=== PATIENT | male | born 1940 | race Caucasian/White ===

== ENCOUNTER 2020-09-15 10:21 | Outpatient (REF) | payer MEDICARE, SELFPAY | END 2020-09-15 10:22 | disposition home or self-care (01) | LOC: HO.LAB 10:21 | PROVIDERS: PCP Internal Medicine; Visit Provider Internal Medicine | DX: Z20.828 Contact with and (suspected) exposure to other viral communicable diseases (principal) | CPT/HCPCS: C9803; U0003 ==

== ENCOUNTER 2025-05-10 09:43 | Outpatient (AMB) | payer MEDICARE, SELFPAY ==
--- NOTE | 2025-05-10 09:42 | A.OFFPC_ITS ---
Vital Signs 05/10/25 09:47 05/10/25 10:42 Height 5 ft 8.5 in Weight 167 lb BMI 25.0 BP 144/67 H 138/60 Blood Pressure Location Rt brachial Position Sitting Respiration 14 Pulse 70 Pulse Source Pulse Oximeter Temp 97.6 F Temp Source Temporal Artery Scan Pulse Oximetry (%) 97 Oxygen Delivery Method Room Air Intake Visit Reasons: Est Care ~ Transfer of Care Dr. Villafana Retail Marketing Specialist Required: No Accompanied by: Self / Same As Patient Allergies No Known Allergies Allergy (Unverified 05/10/25 09:55) Medication List - Last Reconciled 05/10/25 by Dolly Butler PA-C clindamycin phosphate 1% topical DAILY finasteride 5 mg PO DAILY lactulose 30 mL PO BID PRN metronidazole 0.75% topical DAILY sennosides (Black-Draught Lax-Senna) 17.2 mg PO BEDTIME simvastatin 20 mg PO QPM terazosin 5 mg PO DAILY Tobacco use date assessed: 05/10/25 Fall risk assessment: No Falls in past year Last assessed Fall Risk: 05/10/25 Dental Screening Dental Screen Date: 05/10/25 Did you have a dental visit in the last 12 months?: Yes Did you have a dental problem in the last 6 months where you did not have access to dental care?: No Was dental information given to patient?: Patient has dentist HPI Est Care ~ Transfer of Care Dr. Villafana HPI Details The patient is an 84-year-old male presenting for a new patient appointment and routine health maintenance. The patient has a history of benign prostatic hyperplasia, for which he is taking finasteride and terazosin. He reports no acute urinary symptoms and his prostate is noted to be enlarged but not alarming during physical exams. The patient experiences constipation, managed with lactulose, and is under the care of a construction technician. He has a follow-up appointment scheduled next month to monitor his bowel movements and adjust treatment as necessary. The patient has a history of rosacea, for which he uses topical clindamycin. He underwent knee replacement surgery in July, performed by Dr. Sandhu at [facility] [place]. Post-surgery, he reports some swelling but no significant complications. 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 Bhatt at [facility] [place]. He was recently diagnosed with vertigo but is not currently taking medication for it. He was offered meclizine to use as needed for symptoms. Prevent[facility] care [facility], with no current need for dentures. Social History - Family status: for 62 years, garret bolden with - Functional status: No recent falls, do es not require a walker - Preventative care: Regular eye exams a nd dental visits through the [facility] Medical History Overweight with body mass index (BMI) of 25 to 25.9 in adult Vertigo Squamous cell carcinoma of forehead Rosacea Constipation BPH (benign prostatic hyperplasia) Establishing care with new doctor, encounter for Surgical History History of total right hip arthroplasty Family History Father Aneurysm Mother Heart attack Social History Housing: House Alcohol intake: current Alcohol intake frequency: a few times a month Alcohol type: beer Patient Tobacco Use Status: Former Tobacco user service: Yes Current occupational status: retired Cognitive needs: No Hearing needs: Yes (b/l hearing aids) Vision needs: Yes (rx glasses) Questionnaire PHQ-9 Over the last 2 weeks, how often have you been bothered by any of the following problems? 1. Little interest or pleasure in doing things: not at all 2. Feeling down, depressed, or hopeless: not at all 3. Trouble falling or staying asleep, or sleeping too much: not at all 4. Feeling tired or having little energy: not at all 5. Poor appetite or overeating: not at all 6. Feeling bad about yourself - or that you are a failure or have let yourself or your family down: not at all 7. Trouble concentrating on things, such as reading the newspaper or watching television: not at all 8. Moving or speaking so slowly that other people could have noticed. Or the opposite - being so fidgety or restless that you have been moving around a lot more than usual: not at all 9. Thoughts that you would be better off or of hurting yourself in some way: not at all Total score: 0 Depression Screening Interpretation: Negative Depression Screening Done: Yes 46943 - PHQ-9 Billing: Yes Source: Developed by Drs. Rosendo Rivas, Sandra Shah, Homar Hutchison and colleagues, with an educational silverio from [employer]. Thrive Questionnaire Date Thrive assessed: 05/10/25 I am a: Patient What is your living situation today?: I have a steady place to live Within the past 12 months, did the food you bought not last and you didn't have the money to get more?: Never true Within the past 12 months, did you worry whether your food would run out before you got money to buy more?: Never true Do you have trouble paying for medicines?: No Do you have trouble getting transportation to medical appointments?: No Do you have trouble paying your heating and electricity bill?: No Do you have trouble taking care of your child, family member or friend?: No Do you have trouble with day-to-day activities such as bathing, preparing meals, shopping, managing finances, etc.?: No Are you currently unemployed and looking for a job?: No Are you interested in more education?: No Please select the resources that you would like help with: None THRIVE Score: 0 AUDIT C Alcohol Use Questionnaire (AUDIT-C) 1. How often do you have a drink containing alcohol?: 2-4 times a month 2. How many drinks containing alcohol do you have on a typical day when you are drinking?: 1 or 2 3. How often do you have six or more drinks on one occasion?: Never Total Score: 2 Score Reviewed/Action Taken: No ROB-7 AMB Questionnaire ROB-7 Date ROB - 7 assessed: 05/10/25 Feeling nervous, anxious, or on edge: 0 = Not at all Not being able to stop or control worryin = Not at all Worrying too much about different things: 0 = Not at all Trouble relaxin = Not at all Being so restless that it is hard to sit still: 0 = Not at all Becoming easily annoyed or irritable: 0 = Not at all Feeling afraid as if something awful might happen: 0 = Not at all Total ROB-7 score (0-4 normal; 5-9 mild; 10-14 moderate; 15-21 severe): 0 Source: Developed by Drs. Rosendo Rivas, Sandra Shah, Homar Hutchison and colleagues, with an educational silverio from [employer]. ROB-7 Assessment Billing ROB-7 Assessment Tool: ROB-7 Assessment 09177 Review of Systems Const Details: - General: Denies acute complaints - Cardiovascular: Denies chest pain - Gastrointestinal: Reports constipation, denies abdominal pain or bloody stools - Musculoskeletal: Reports knee swelling post-replacement surgery - Dermatological: Reports rosacea, scheduled for squamous cell carcinoma surgery - Neurological: Reports vertigo, denies taking medication All systems reviewed & are unremarkable except as noted in HPI and below Physical exam (Primary Care) Vital Signs: Last Vital Signs Temp 97.6 F 05/10/25 09:47 Pulse 70 05/10/25 09:47 Resp 14 05/10/25 09:47 BP 144/67 H 05/10/25 09:47 Pulse Ox 97 05/10/25 09:47 Oxygen Delivery Method Room Air 05/10/25 09:47 Care Plan Goal for BP management: <140/90 at Goal BMI result Body Mass Index 25.0 BMI Assessment/Plan discussion: High BMI High, discussed plan: lifestyle, weight reduction, dietary, physical activity and alcohol moderation Tobacco/Smoking Status: Tobacco use Status Tobacco use date assessed 05/10/25 05/10/25 09:44 Patient Tobacco Use Status Former Tobacco user 05/10/25 09:54 PHQ-9: PHQ-9 Score PHQ-9: Total score 0 05/10/25 09:56 Depression Screening Interpretation: Negative Thrive Assessment: Date of Thrive Assessment Date Thrive assessed 05/10/25 05/10/25 09:44 Const Other: Appearance: Alert. Oriented X3. No acute distress. Head: Normal external exam. Normocephalic. Atraumatic. Eyes: Pupils are equal, round, and reactive to light. Extraocular movements intact. Conjunctiva and sclera normal. Eyelids normal. Throat: Pharynx normal. Uvula midline. Moist mucous membranes. Neck: Normal inspection. Neck supple. Full range of motion. Cardiovascular: Normal heart rate and rhythm. Heart sound normal. No murmurs noted. Pulses normal throughout. Respiratory: No respiratory distress. Painless inspiration. Breath sounds normal. No wheezes/rales/rhonchi noted. Chest nontender. No accessory muscle usage noted or decreased air movement noted. Back: Full range of motion noted. Skin: Skin warm and dry. Normal skin color. Normal skin turgor. No rashes/lesions/lacerations noted. Extremities: Swelling noted in the knee due to recent knee replacement surgery. No lower extremity edema otherwise. No calf tenderness noted bilaterally. Extremities exhibit normal range of motion. Extremities nontender. Neuro: Oriented X 3. Moving all extremities with normal steady gait. Coding Level of Care Code New Pt Level 4 (43661) Complex EM visit Add On G2211 Diagnoses Establishing care with new doctor, encounter for Z76.89 BPH (benign prostatic hyperplasia) N40.0 Constipation K59.00 Rosacea L71.9 Squamous cell carcinoma of forehead C44.329 Vertigo R42 Overweight with body mass index (BMI) of 25 to 25.9 in adult E66.3; Z68.25 Additional Codes PHQ-9 - 55215 - PHQ-9 Billing: Yes ([id number]) ROB-7 Assessment Billing - ROB-7 Assessment Tool: ROB-7 Assessment 62059 ([id number]) Assessment & Plan Assessment & Plan (1) Establishing care with new doctor, encounter for: Code(s): Z76.89 - Persons encountering health services in other specified circumstances Category: Medical (2) BPH (benign prostatic hyperplasia): Code(s): N40.0 - Benign prostatic hyperplasia without lower urinary tract symptoms Category: Medical Plan: The patient is currently managed with finasteride and terazosin for benign prostatic hyperplasia. The prostate is noted to be enlarged but not causing sig nificant symptoms or concern during physical exams. (3) Constipation: Code(s): K59.00 - Constipation, unspecified Category: Medical Plan: The patient is experiencing constipation and is managed with lactulose. He is under the care of a construction technician and has a follow-up appointment scheduled to monitor and adjust treatment as necessary. (4) Rosacea: Code(s): L71.9 - Rosacea, unspecified Category: Medical Plan: The patient uses topical clindamycin for rosacea management. 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 Bhatt at [facility]. (6) Vertigo: Code(s): R42 - Dizziness and giddiness Category: Medical Plan: The patient was recently diagnosed with vertigo and was offered meclizine to use as needed for symptoms. (7) Overweight with body mass index (BMI) of 25 to 25.9 in adult: Code(s): E66.3 - Overweight; Z68.25 - Body mass index [BMI] 25.0-25.9, adult Category: Medical Plan: Patient to improve diet and exercise regimen. Condition is chronic and stable continue to monitor. Plan Plan Patient was informed and verbally consented to the use of an ambient scribe for clinic note documentation during this visit. 1. Benign Prostatic Hyperplasia The patient is currently managed with finasteride and terazosin for benign prostatic hyperplasia. The prostate is noted to be enlarged but not causing significant symptoms or concern during physical exams. 2. Constipation The patient is experiencing constipation and is managed with lactulose. He is under the care of a construction technician and has a follow-up appointment scheduled to monitor and adjust treatment as necessary. 3. Rosacea The patient uses topical clindamycin for rosacea management. 4. Knee Replacement Surgery The patient underwent knee replacement surgery in July, performed by Dr. Sandhu at [facility]. Post-surgery, he reports some swelling but no significant complications. 5. 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 Bhatt at [facility]. 6. Vertigo The patient was recently diagnosed with vertigo and was offered meclizine to use as needed for symptoms. During the visit, we discussed the management of benign prostatic hyperplasia with finasteride and terazosin, and the patient was informed that his prostate enlargement is not currently concerning. We reviewed the patient's constipation management with lactulose and the ongoing care with a construction technician, emphasizing the importance of follow-up appointments. The patient was advised on the use of topical clindamycin for rosacea and the upcoming surgery for squamous cell carcinoma, ensuring he understood the procedure and follow-up ca re. We discussed the recent diagnosis of vertigo and the option of using meclizine as needed, explaining its potential side effects. Medications: New meclizine 25 mg PO DAILY PRN 30 tabs 3RF motion sickness Patient Instructions: - Continue current medications as prescribed. - Follow up with construction technician as scheduled. - Attend scheduled surgery for squamous cell carcinoma. - Use meclizine as needed for vertigo symptoms, being aware of potential drowsiness. - [facility].
[2025-05-10 09:47] VITALS: BP 144/67; PULSE 70; RESP 14; TEMP 36.4; O2SAT 97; BMI 25.0
[2025-05-10 10:42] VITALS: BP 138/60
== END 2025-05-10 09:46 | disposition home or self-care (01) ==
LOC: HO.HMCSH 09:43
PROVIDERS: PCP Internal Medicine; Visit Provider Physician Assistant Medical
DX: Z76.89 Persons encountering health services in other specified circumstances (principal); N40.0 Benign prostatic hyperplasia without lower urinary tract symptoms; K59.00 Constipation, unspecified; L71.9 Rosacea, unspecified; C44.329 Squamous cell carcinoma of skin of other parts of face; R42 Dizziness and giddiness; E66.3 Overweight; Z68.25 Body mass index [BMI] 25.0-25.9, adult

== ENCOUNTER → 2025-05-10 09:43 | Outpatient (BNVA) | payer MEDICARE, SELFPAY | PROVIDERS: PCP Internal Medicine; Visit Provider Physician Assistant Medical | DX: N40.0 Benign prostatic hyperplasia without lower urinary tract symptoms (principal); K59.00 Constipation, unspecified; C44.329 Squamous cell carcinoma of skin of other parts of face; L71.9 Rosacea, unspecified; R42 Dizziness and giddiness; E66.3 Overweight; Z76.89 Persons encountering health services in other specified circumstances; Z68.25 Body mass index [BMI] 25.0-25.9, adult | CPT/HCPCS: 96127; 99202 ==

== ENCOUNTER 2025-06-21 09:38 | Outpatient (AMB) | payer MEDICARE, SELFPAY ==
[2025-06-21 09:45] VITALS: BP 154/69; PULSE 60; RESP 16; TEMP 36.7; O2SAT 97; BMI 25.2
--- NOTE | 2025-06-21 09:45 | A.OFFPC_ITS ---
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 Required: No Accompanied by: Self / Same As Patient Allergies No Known Allergies Allergy (Unverified 06/21/25 09:46) Tobacco use date assessed: 06/21/25 Dental Screening Dental Screen Date: 05/10/25 [facility] Medical History Overweight with body mass index (BMI) of 25 to 25.9 in adult Vertigo Squamous cell carcinoma of forehead Rosacea Constipation BPH (benign prostatic hyperplasia) Establishing care with new doctor, encounter for Surgical History History of total right hip arthroplasty Family History Father Aneurysm Mother Heart attack Social History Housing: House Alcohol intake: current Alcohol intake frequency: a few times a month Alcohol type: beer Patient Tobacco Use Status: Former Tobacco user service: Yes Current occupational status: retired Cognitive needs: No Hearing needs: Yes (b/l hearing aids) Vision needs: Yes (rx glasses) Questionnaire PHQ-9 Over the last 2 weeks, how often have you been bothered by any of the following problems? 1. Little interest or pleasure in doing things: not at all 2. Feeling down, depressed, or hopeless: not at all 3. Trouble falling or staying asleep, or sleeping too much: not at all 4. Feeling tired or having little energy: not at all 5. Poor appetite or overeating: not at all 6. Feeling bad about yourself - or that you are a failure or have let yourself or your family down: not at all 7. Trouble concentrating on things, such as reading the newspaper or watching television: not at all 8. Moving or speaking so slowly that other people could have noticed. Or the opposite - being so fidgety or restless that you have been moving around a lot more than usual: not at all 9. Thoughts that you would be better off or of hurting yourself in some way: not at all Total score: 0 Depression Screening Interpretation: Negative Depression Screening Done: Yes 64425 - PHQ-9 Billing: Yes Source: Developed by Drs. Rosendo Rivas, Sandra Shah, Homar Hutchison and colleagues, with an educational silverio from [employer]. Thrive Questionnaire Date Thrive assessed: 05/10/25 I am a: Patient What is your living situation today?: I have a steady place to live Within the past 12 months, did the food you bought not last and you didn't have the money to get more?: Never true Within the past 12 months, did you worry whether your food would run out before you got money to buy more?: Never true Do you have trouble paying for medicines?: No Do you have trouble getting transportation to medical appointments?: No Do you have trouble paying your heating and electricity bill?: No Do you have trouble taking care of your child, family member or friend?: No Do you have trouble with day-to-day activities such as bathing, preparing meals, shopping, managing finances, etc.?: No Are you currently unemployed and looking for a job?: No Are you interested in more education?: No Please select the resources that you would like help with: None THRIVE Score: 0 AUDIT C Alcohol Use Questionnaire (AUDIT-C) 1. How often do you have a drink containing alcohol?: 2-4 times a month 2. How many drinks containing alcohol do you have on a typical day when you are drinking?: 1 or 2 3. How often do you have six or more drinks on one occasion?: Never Total Score: 2 Score Reviewed/Action Taken: No ROB-7 AMB Questionnaire ROB-7 Date ROB - 7 assessed: 05/10/25 Feeling nervous, anxious, or on edge: 0 = Not at all Not being able to stop or control worryin = Not at all Worrying too much about different things: 0 = Not at all Trouble relaxin = Not at all Being so restless that it is hard to sit still: 0 = Not at all Becoming easily annoyed or irritable: 0 = Not at all Feeling afraid as if something awful might happen: 0 = Not at all Total ROB-7 score (0-4 normal; 5-9 mild; 10-14 moderate; 15-21 severe): 0 Source: Developed by Drs. Rosendo Rivas, Sandra Shah, Homar Hutchison and colleagues, with an educational silverio from [employer]. ROB-7 Assessment Billing ROB-7 Assessment Tool: ROB-7 Assessment 52071 Physical exam (Primary Care) Vital Signs: Last Vital Signs Temp 98.0 F 06/21/25 09:45 Pulse 60 06/21/25 09:45 Resp 16 06/21/25 09:45 BP 154/69 H 06/21/25 09:45 Pulse Ox 97 06/21/25 09:45 Oxygen Delivery Method Room Air 06/21/25 09:45 BMI result Body Mass Index 25.2 Tobacco/Smoking Status: Tobacco use Status Tobacco use date assessed 06/21/25 06/21/25 09:47 Patient Tobacco Use Status Former Tobacco user 06/21/25 09:47 PHQ-9: PHQ-9 Score PHQ-9: Total score 0 06/21/25 10:13 Depression Screening Interpretation: Negative Thrive Assessment: Date of Thrive Assessment Date Thrive assessed 05/10/25 06/21/25 09:47 Coding Level of Care Code Est Pt Level 4 (07690) Complex EM visit Add On G2211 Diagnoses Foot pain M79.673 Additional Codes ROB-7 Assessment Billing - ROB-7 Assessment Tool: ROB-7 Assessment 56762 ([id number]) PHQ-9 - 53065 - PHQ-9 Billing: Yes ([id number]) Assessment & Plan Assessment & Plan (1) Foot pain: Code(s): M79.673 - Pain in unspecified foot Plan: History of Present Illness - The patient is an 84-year-old male presenting with foot pain. - The foot pain has been present for approximately three weeks and is localized to the left foot. - The patient denies any fall or injury to the foot. - The patient reports wearing unstable footwear, which may have contributed to the pain. - The pain is present even when not bearing weight, but it is not severe enough to disturb sleep. - The patient walks with a limp due to the pain. - The patient has not taken any medication for the pain. - The patient had knee surgery in July and has been favoring the left foot since then. - The patient is active, taking care of his house and property, often walking on uneven ground. Social History - The patient is active in maintaining his house and property, which involves walking on uneven ground. Review of Systems - Musculoskeletal: Reports pain in the left foot for three weeks, numbness in the foot, and walking with a limp. Denies any fall or injury. Physical Exam General: Cooperative and healthy appearing Nutritional Appearance: Well nourished Orientation/consciousness: Patient oriented x3 Limitations: No limitations Head: Normal to inspection General: Appearance normal, both eyes and all related structures Neck: Normal visual inspection Chest: Normal palpation of entire chest wall Respiratory: N ormal respiratory effort Neurology: Patient oriented x3, reports numbness in the left foot. Results Plan 1. Foot Pain - Recommend wearing stable footwear, such as sneakers, to prevent further injury. - Advise elevating the foot when sitting and avoiding weight-bearing activities. - Suggest a trial of anti-inflammatory medication for seven days, to be taken with food. - Recommend avoiding walking on uneven terrain until symptoms improve. - Consider referral to a project management director for further evaluation if symptoms do not improve. Discussion Notes I discussed with the patient the importance of wearing stable footwear to prevent further injury to the foot. I advised elevating the foot when sitting and avoiding weight-bearing activities to aid in recovery. A trial of anti- inflammatory medication was recommended for seven days, with instructions to take it with food. I also suggested avoiding walking on uneven terrain until symptoms improve. If the symptoms do not improve, I will consider referring the patient to a project management director for further evaluation. Patient Instructions - Wear stable shoes, like sneakers, to prevent further injury. - Elevate your foot when sitting and avoid standing for long periods. - Take the prescribed anti-inflammatory medication with food for seven days. - Avoid walking on uneven ground until your symptoms improve. - Contact the clinic if your symptoms do not improve for a possible referral to a project management director.
--- OUTSIDE RECORDS SUMMARY | 2025-06-21 10:15 | XMS_ITS | Clinical Summary ---
Author Organization [facility] Address [address] [place] [address] Phone Care Team Providers Care Brim Presser Name Role Phone Paco Barber Primary Care Provider [phone] Allergies No known active allergies Medications finasteride (PROSCAR) 5 mg tablet Take 1 tablet (5 mg total) by mouth 1 (one) time each day. 5 Active terazosin (HYTRIN) 5 mg capsule Take 1 capsule (5 mg total) by mouth 1 (one) time each day. 5 Active simvastatin (ZOCOR) 20 mg tablet Take 1 tablet (20 mg total) by mouth at bedtime. 5 Active bisacodyL (DULCOLAX) 5 mg EC tablet Take 1 tablet (5 mg total) by mouth 1 (one) time each day if needed for constipatio n. Do not crush, chew, or split. Active polyethylene glycol (PEG) 17 gram/dose oral powder 17 g 1 (one) time each day. Active senna-docusate (PERICOLACE) 8.6-50 mg per tabletIndications :Chronic constipation Take 2 tablets by mouth at bedtime. 60 each 11 5 04/07/20 26 Active plecanatide (Trulance) 3 mg tabletIndications :Constipation, unspecified constipation type Take 1 tablet (3 mg total) by mouth 1 (one) time each day. 30 tablet 2 5 Active linaCLOtide (Linzess) 72 mcg capsuleIndication s:Chronic constipation Take 1 capsule (72 mcg total) by mouth 1 (one) time each day before breakfast. 30 each 2 5 09/15/20 25 Active plecanatide (Trulance) 3 mg tablet Take 1 tablet (3 mg total) by mouth 1 (one) time each day. 06/16/20 25 Discontinu ed(Reorder ) Active Problems Problem Noted Date Diagnosed Date Combined forms of age-related cataract, bilatera l 06/09/2025 Constipation 06/09/2025 Digestive system disorder 06/09/2025 Overview (06/09/2025): Jul 21, 2024 Entered By: PACO BARBER Comment: bloating Enlarged prostate 06/09/2025 Mixed conductive and sensorineural hearing loss, bilateral 06/09/2025 Osteoarthritis 06/09/2025 Right knee pain 06/09/2025 Skin cancer 06/09/2025 Bilateral tinnitus 06/09/2025 Irritable bowel syndrome (IBS) 02/03/2025 BPH (benign prostatic hyperplasia) 02/03/2025 HLD (hyperlipidemia) 02/03/2025 Adenomatous polyp of colon 02/03/2025 Assessment & Plan (06/09/2025 12:38 PM EDT): Last colonoscopy 2018 Dr. Cook Routine surveillance colonoscopy was not pursued due to age in the past however with her issues with constipation and rectal bleeding colonoscopy will be arranged for further evaluation. The risks and benefits of the colonoscopy and anesthesia were reviewed with the patient. He is in overall good health for his age. He would like to pursue the colonoscopy. Encounters Date Type Department Care Team Description 06/16/2025 Telephone Gastroenterology - [address] [place] [phone] Fazal Barry PA 06/09/2025 9:40 AM EDT Office Visit Gastroenterology - [address] [place] [phone] Fazal Barry PA Rectal bleeding (Primary Dx); Chronic constipation; Adenomatous polyp of colon, unspecified part of colon 06/09/2025 Telephone Gastroenterology - [address] [place] [address] Terry Davila MD 04/07/2025 9:40 AM EDT Office Visit Gastroenterology - [address] [place] [address] Fazal Barry PA Chronic constipation (Primary Dx) from Last 3 Months Immunizations Name Administration Dates Next Due Influenza Quadravalent, 0.5m l (Fluzone High-dose) 65yo and older 08/29/2023 Influenza Quadravalent, MDCK , 0.5ml, with preservative (Flucelvax) 6mo and older 07/11/2020,06/29/2019 Influenza Quadrivalent, 0.5m l, preservative free (Fluarix; FluLaval; Fluzone) ages 6mo and older (Afluria) 3yo and older 08/20/2017 Influenza Quadrivalent, with preservative (Fluzone; Afluria) 6mo and older 08/21/2022,07/12/2021,08/19/2018 Influenza trivalent, 0.5mL ( Fluzone High-dose) 65yo and older 07/21/2024 Influenza trivalent, with pr eservative (Fluzone; Afluria) 6mo and older 09/02/2016 Influenza, Unspecified 08/03/2015,07/27/2015 Moderna SARS-CoV-2 COVID-19, mRNA, LNP-S, preservative free 09/16/2021 Tdap Tetanus diptheria acell ular pertussis (Boostrix; Adacel) 7yo and older 11/27/2022 Surgical History Surgery Date Site/Laterality Comments HERNIA REPAIR COLONOSCOPY 07/27/2019 - 08/26/2019 tax1, tics throughout TOTAL KNEE ARTHROPLASTY Right Social History Tobacco Use Types Packs/Day Years Used Date Smoking Tobacco: Former Cigarettes Smokeless Tobacco: Never Tobacco Cessation:Counseling Given: Not Answered Alcohol Use Standard Drinks/Week Comments Yes 0 (1 standard drink = 0.6 oz pur e alcohol) Rare social occasions Sex and Gender Information Value Date Recorded Sex Assigned at Not on file Legal Sex Male 8:10 AM EST Gender Identity Not on file Sexual Orientation Not on file Obstetrics History Last Filed Vital Signs Vital Sign Reading Time Taken Comments Blood Pressure - - Pulse - - Temperature - - Respiratory Rate - - Oxygen Saturation - - Inhaled Oxygen Concentration - - Weight 76.4 kg (168 lb 6.4 oz) 06/09/2025 9:40 A M EDT Height 175.3 cm (5' 9 ) 06/09/2025 9:40 AM EDT Body Mass Index 24.87 06/09/2025 9:40 AM EDT Plan of Treatment Health Maintenance Due Date Last Done Comments Pneumococcal Vaccine: 50+ Years (1 of 1 - PCV) 1990 Zoster Vaccines (1 of 2) 1990 RSV Immunization Adult Patients (1 - 1-dose 75+ series) 2015 COVID-19 Vaccine (7 - season) 2024 09/03/2022, 03/05/2022, 09/16/2021, Additional history exists Depression Screening 10/27/2024 Cholesterol Screening (Lipid Panel) 01/28/2025 Falls Risk Assessment 01/28/2025 Social Influencers of Health Screening 01/28/2025 Influenza Vaccine (#1) 2025 , 08/29/2023, 08/21/2022, Additional history exists DTaP,Tdap,and Td Vaccines (2 - Td or Tdap) 11/27/2032 11/27/2022 HIB Vaccines Aged Out No longer eligi ble based on patient's age to complete this topic HPV Vaccines Aged Out No longer eligi ble based on patient's age to complete this topic Hepatitis A Vaccines Aged Out No long er eligible based on patient's age to complete this topic Hepatitis B Vaccines Aged Out No long er eligible based on patient's age to complete this topic IPV Vaccines Aged Out No longer eligi ble based on patient's age to complete this topic MMR Vaccines Aged Out No longer eligi ble based on patient's age to complete this topic Meningococcal ACWY Vaccine Aged Out N o longer eligible based on patient's age to complete this topic Meningococcal B Vaccine Aged Out No l onger eligible based on patient's age to complete this topic RSV Immunization Patients Under 20 months Aged Out No longer eligible based on patient's age to complete this topic Varicella Vaccines Aged Out No longer eligible based on patient's age to complete this topic Insurance [facility] Care Teams Brim Presser Relationship Specialty Start Date End Date Paco Barber FNP [address] [place] [address] [place] [address] PCP - General Family Medicine 01/28/25
--- OUTSIDE RECORDS SUMMARY | 2025-06-21 10:15 | XMS_ITS | Encounter Summary ---
Author Organization [facility] Address [id number] [place] [phone] Care Team Providers Care Service Department Manager Name Role Phone Paco Barber P[employer] AND AUX[employer]IES SUPERVISOR Primary Care Provider [phone] Reason for Visit * Reason Onset Date Comments Med Refill 06/16/2025 Constipation 06/16/2025 Encounter Details Date Type Department Care Team (Late st Contact Info) Description 06/16/2025 Telephone Gastroenterology - [address] [place] [phone] Fazal Barry PA [address] [place] [address] Social History Tobacco Use Types Packs/Day Years Used Date Smoking Tobacco: Former Cigarettes Smokeless Tobacco: Never Alcohol Use Standard Drinks/Week Comments Yes 0 (1 standard drink = 0.6 oz pur e alcohol) Rare social occasions Sex and Gender Information Value Date Recorded Sex Assigned at Not on file Legal Sex Male 8:10 AM EST Gender Identity Not on file Sexual Orientation Not on file documented as of this encounter Ordered Prescriptions Prescription Sig Dispense Quantity Refills Last Filled Start Date End Date plecanatide (Trulance) 3 mg tabletIndications:C onstipation, unspecified constipation type Take 1 tablet (3 mg total) by mouth 1 (one) time each day. 30 tablet 2 06/17/2025 documented in this encounter Progress Notes * Silvia Le MA - 06/20/2025 3:07 PM EDT Called pt with below message Yes. Lactulose is fine. He can adjust the amount that he takes to his needs. If he starts off with 2 tablespoons twice a day he can increase it or decrease it as needed. * Davida Landis - 06/20/2025 8:55 AM EDT Pt is calling stating linzess is too expensive, he wants to let Arlette know that he is starting to take lactulose and if it is okay to take ? * Davida Landis - 06/17/2025 1:57 PM EDT Pts pharmacy is calling stating Trulance is not covered by pts insurance. They are wondering if there is anything else that can be prescribed ? * Rose Mendiola MA - 06/16/2025 9:52 AM EDT I spoke with patient and he is still having constipation with the Trulance however he did decrease his Senna as you stated in the last office visit. Is there anything he should be doing in combination with the Trulance. The only thing he has been doing is the 3 Senna tabs qhs. Please advise. * Dori Jamil - 06/16/2025 9:36 AM EDT Pateint has been taking Trulance morgan 06/09/25, has been constipated for the last 3 days (since 06/14/25), please let ML know. ANIKET : 06/09/25 NOV : N/A Medication : TRULANCE Dose : 3 MG, 1 DAILY day supply : N/A WAS GIVEN A SAMPLE Prescriber : JULIETTE Pharmacy : ON FILE Is patient out of medication? : ALMOST PLEASE NOTE MED REFILLS CAN TAKE UP TO 72 HOURS TO FILL documented in this encounter Plan of Treatment Not on file documented as of this encounter Visit Diagnoses Diagnosis Constipation, unspecified constipation type- Primary documented in this encounter Discontinued Medications Medication Sig Discontinue Reason Start Date End Da te plecanatide (Trulance) 3 mg tablet Take 1 tablet (3 mg total) by mouth 1 (one) time each day. Reorder 06/16/2025 documented as of this encounter Historical Medications * This list may reflect changes made after this encounter. plecanatide (Trulance) 3 mg tablet Take 1 tablet (3 mg total) by mouth 1 (one) time each day. 06/16/2025 added in this encounter Care Teams Service Department Manager Relationship Specialty Start Date End Date Paco Barber FNP [address] [place] [address] [place] [address] PCP - General Family Medicine 01/28/25 documented as of this encounter
--- OUTSIDE RECORDS SUMMARY | 2025-06-21 10:15 | XMS_ITS | Encounter Summary ---
Author Organization [facility] Address [id number] [place] [phone] Care Team Providers Care Cargo Supervisor Name Role Phone Paco Barber [facility] Primary Care Provider [phone] Reason for Visit * Reason Onset Date Comments special procedure 06/09/2025 Encounter Details Date Type Department Care Team ([facility] st Contact Info) Description 06/09/2025 Telephone Gastroenterology - [address] [phone] Terry Davila MD [address] [id number] Social History Tobacco Use Types Packs/Day Years [...] on file documented as of this encounter Progress Notes * Lashae Hughes - 06/20/2025 9:17 AM EDT 2nd attempt to reach patient to schedule appointment. Left message to call back. * Lashae Hughes - 06/16/2025 10:07 AM EDT 1st attempt to reach patient to schedule appointment. Left message to call back. * Dori Jamil - 06/16/2025 9:41 AM EDT Patient returning call * Barbra Messina MA - 06/14/2025 9:52 AM EDT 3rd attempt to schedule an appointment patient left message to call back and letter sent * Lashae Hughes - 06/10/2025 1:21 PM EDT 2nd attempt to reach patient to schedule appointment. Left message to call back. * Davida Landis - 06/10/2025 1:06 PM EDT Pt returning call * Lashae Hughes - 06/10/2025 10:54 AM EDT 1st attempt to reach patient to schedule appointment. Left message to call back. * America López - 06/09/2025 1:08 PM EDT ----- Message from SANJIV Conteh sent at 06/09/2025 10:01 AM EDT ----- Colonoscopy Refractory constipation Rectal bleeding Last colon 2019/hx polyps/ Office f/u after procedure documented in this encounter Plan of Treatment Not on file documented as of this encounter Visit Diagnoses Not on filedocumented in this encounter Care Teams Cargo Supervisor Relationship Specialty Start Date End Date Paoc Barber FNP [address] [place] [address] [place] [address] PCP - General Family Medicine 01/28/25 documented as of this encounter
== END 2025-06-21 10:43 | disposition home or self-care (01) ==
LOC: HO.HMCSH 09:38
PROVIDERS: PCP Internal Medicine; Visit Provider Internal Medicine
DX: M79.673 Pain in unspecified foot (principal)

== ENCOUNTER → 2025-06-21 09:38 | Outpatient (BNVA) | payer MEDICARE, SELFPAY | PROVIDERS: PCP Internal Medicine; Visit Provider Internal Medicine | DX: M79.672 Pain in left foot (principal) | CPT/HCPCS: 96127; 99212 ==

== ENCOUNTER 2025-10-17 13:49 | Outpatient (AMB) | payer MEDICARE, SELFPAY ==
[2025-10-17 13:49] VITALS: BP 126/58; PULSE 70; RESP 14; TEMP 36.7; O2SAT 98; BMI 26.1
--- NOTE | 2025-10-17 13:49 | A.OFFPC_ITS ---
Vital Signs 10/17/25 13:49 Height 5 ft 8.5 in Weight 174 lb BMI 26.1 BP 126/58 L Blood Pressure Location Lt brachial Position Sitting Respiration 14 Pulse 70 Pulse Source Pulse Oximeter Temp 98.0 F Temp Source Temporal Artery Scan Pulse Oximetry (%) 98 Oxygen Delivery Method Room Air Intake Visit Reasons: Cardiac issue Air Quality Consultant Required: No Accompanied by: Self / Same As Patient Allergies No Known Allergies Allergy (Unverified 10/17/25 14:30) Medication List - Last Reconciled 10/17/25 by Harish Oliva MD clindamycin phosphate 1% topical DAILY finasteride 5 mg PO DAILY lactulose 30 mL PO BID PRN metronidazole 0.75% topical DAILY sennosides (Black-Draught Lax-Senna) 17.2 mg PO BEDTIME simvastatin 20 mg PO QPM terazosin 5 mg PO DAILY Tobacco use date assessed: 06/21/25 Dental Screening Dental Screen Date: 05/10/25 HPI HPI Comments History of Present Illness Details History of Present Illness - The patient is an 84 year old male pre senting to obtain a referral for a second opinion from a community galvanizing pot runner. - He has a diagnosis of vertigo and was seeking physical therapy for it through the [facility], but the physical therapist suggested a cardiac evaluation. - Through the [facility], he underwent a carotid test, an echocardiogram, and wore a 14- day heart monitor. - He was told he has episodes of a very rapid heartbeat and a very low heartbeat. - A beta-brian was considered but ulti mately not prescribed due to the episodes of low heart rate. - The patient had a teleconference with a [facility] galvanizing pot runner last week, who suggested cutting out caffeine due to his high coffee intake. - He was not satisfied with the interact ion and the recommendations, prompting his request for a second opinion. - He has not been physically seen by any provider at the [facility] for this issue. Social History - Substance Use: The patient reports dri nking a significant amount of coffee. Results - EKG: In-office EKG showed sinus arrhyt hmia, described as having no significant problems. - Prior Studies ([facility]): The patient report s having had a carotid test, an echocardiogram, and a 14-day heart monitor, the results of which are not currently available but indicated episodes of both rapid and low heart rates. [facility] Medical History Overweight with body mass index (BMI) of 25 to 25.9 in adult Vertigo Squamous cell carcinoma of forehead Rosacea Constipation BPH (benign prostatic hyperplasia) Establishing care with new doctor, encounter for Surgical History History of total right hip arthroplasty Family History Father Aneurysm Mother Heart attack Social History Housing: House Alcohol intake: current Alcohol intake frequency: a few times a month Alcohol t ype: beer Patient Tobacco Use Status: Former Tobacco user service: Yes Current occupational status: retired Cognitive needs: No Hearing needs: Yes (b/l hearing aids) Vision needs: Yes (rx glasses) Questionnaire PHQ-9 Over the last 2 weeks, how often have you been bothered by any of the following problems? 1. Little interest or pleasure in doing things: not at all 2. Feeling down, depressed, or hopeless: not at all 3. Trouble falling or staying asleep, or sleeping too much: not at all 4. Feeling tired or having little energy: not at all 5. Poor appetite or overeating: not at all 6. Feeling bad about yourself - or that you are a failure or have let yourself or your family down: not at all 7. Trouble concentrating on things, such as reading the newspaper or watching television: not at all 8. Moving or speaking so slowly that other people could have noticed. Or the opposite - being so fidgety or restless that you have been moving around a lot more than usual: not at all 9. Thoughts that you would be better off or of hurting yourself in some way: not at all Total score: 0 Depression Screening Interpretation: Negative Depression Screening Done: Yes 47233 - PHQ-9 Billing: Yes Source: Developed by Drs. Rosendo Rivas, Sandra Shah, Homar Hutchison and colleagues, with an educational sivlerio from [employer]. Thrive Questionnaire Date Thrive assessed: 05/10/25 I am a: Patient What is your living situation today?: I have a steady place to live Within the past 12 months, did the food you bought not last and you didn't have the money to get more?: Never true Within the past 12 months, did you worry whether your food would run out before you got money to buy more?: Never true Do you have trouble paying for medicines?: No Do you have trouble getting transportation to medical appointments?: No Do you have trouble paying your heating and electricity bill?: No Do you have trouble taking care of your child, family member or friend?: No Do you have trouble with day-to-day activities such as bathing, preparing meals, shopping, managing finances, etc.?: No Are you currently unemployed and looking for a job?: No Are you interested in more education?: No Please select the resources that you would like help with: None THRIVE Score: 0 AUDIT C Alcohol Use Questionnaire (AUDIT-C) 1. How often do you have a drink containing alcohol?: 2-4 times a month 2. How many drinks containing alcohol do you have on a typical day when you are drinking?: 1 or 2 3. How often do you have six or more drinks on one occasion?: Never Total Score: 2 Score Reviewed/Action Taken: No ROB-7 AMB Questionnaire ROB-7 Date ROB - 7 assessed: 05/10/25 Feeling nervous, anxious, or on edge: 0 = Not at all Not being able to stop or control worryin = Not at all Worrying too much about different things: 0 = Not at all Trouble relaxin = Not at all Being so restless that it is hard to sit still: 0 = Not at all Becoming easily annoyed or irritable: 0 = Not at all Feeling afraid as if something awful might happen: 0 = Not at all Total ROB-7 score (0-4 normal; 5-9 mild; 10-14 moderate; 15-21 severe): 0 Source: Developed by Drs. Rosendo Rivas, Sandra Shah, Homar Hutchison and colleagues, with an educational silverio from [employer] ROB-7 Assessment Billing ROB-7 Assessment Tool: ROB-7 Assessment 25005 Review of Systems Narrative Review of Systems - Constitutional: Reports feeling well otherwise. - Cardiovascular: Reports having both a very rapid heartbeat and a very low heartbeat at times. - Neurological: Reports dizziness. Physical exam (Primary Care) Vital Signs: Last Vital Signs Temp 98.0 F 10/17/25 13:49 Pulse 70 10/17/25 13:49 Resp 14 10/17/25 13:49 BP 126/58 L 10/17/25 13:49 Pulse Ox 98 10/17/25 13:49 Oxygen Delivery Method Room Air 10/17/25 13:49 BMI result Body Mass Index 26.1 Tobacco/Smoking Status: Tobacco use Status Tobacco use date assessed 06/21/25 10/17/25 13:51 Patient Tobacco Use Status Former Tobacco user 10/17/25 13:51 PHQ-9: PHQ-9 Score PHQ-9: Total score 0 10/17/25 13:51 Depression Screening Interpretation: Negative Thrive Assessment: Date of Thrive Assessment Date Thrive assessed 05/10/25 10/17/25 13:51 Narrative Physical Exam General: Cooperative and healthy appearing Nutritional Appearance: Well nourished Orientation/consciousness: Patient oriented x3 Limitations: No limitations Head: Normal to inspection General: Appearance normal, both eyes and all related structures Neck: Normal visual inspection Chest: Normal palpation of entire chest wall Respiratory: Normal respiratory effort Neurology: Patient oriented x3 Coding Level of Care Code Est Pt Level 4 (87374) Add On Problem Visit Only Diagnoses Palpitation R00.2 Additional Codes ROB-7 Assessment Billing - ROB-7 Assessment Tool: ROB-7 Assessment 44635 ([id number]) PHQ-9 - 07003 - PHQ-9 Billing: Yes ([id number]) Assessment & Plan Assessment & Plan (1) Palpitation: Code(s): R00.2 - Palpitations Plan Plan - A referral to a galvanizing pot runner for a second opinion will be processed once the patient provides the name of the desired specialist at [facility]. - The patient was advised to obtain all his medical records from the [facility], including the results of his carotid test, echocardiogram, and 14-day heart monitor, to provide to the consulting galvanizing pot runner. - Reassurance was provided that the in-office EKG showed sinus arrhythmia, which is a common age-related finding and not of immediate concern. - No medications or further immediate workup are indicated at this time. Discussion Notes I reviewed the results of the in-office EKG with the patient and explained that it showed a sinus arrhythmia, which involves a variable heart rate but is not acutely concerning and can be a normal part of aging. We discussed his primary goal for the visit, which is to obtain a referral for a second cardiology opinion due to his dissatisfaction with care received via teleconference at the [facility]. I strongly advised him to obtain copies of all his recent cardiac testing from the [facility] before his consultation to prevent redundant testing. I informed him that I will provide the referral as soon as he gives my office the name of the [facility] galvanizing pot runner he wishes to see. I reassured him that based on today's assessment, there is nothing to be worried about at this point. Patient Instructions - Your EKG in the office today was normal for your age and showed a condition called sinus arrhythmia, which means your heart rate varies. - This result is not a cause for immediate worry. - Please contact our office with the name of the galvanizing pot runner at [facility] you would like to see, and we will send the referral for you. - Before you see the new galvanizing pot runner, you should get copies of your recent test results from the [facility], including the carotid test, echocardiogram (heart ultrasound), and the 14-day heart monitor report. - This will help the specialist and may prevent you from having to repeat the tests. Orders: Orders AMB EKG-In Office Today R00.2 - Palpitations
--- OUTSIDE RECORDS SUMMARY | 2025-10-17 17:14 | XMS_ITS | Clinical Summary ---
Author Organization [facility] Address [address] [place] [address] Phone Care Team Providers Care Mortgage Loan Reviewer Name Role Phone Paco Barber Primary Care Provider [phone] Allergies No known active allergies Medications finasteride [...] (one) time each day if needed for constipation. Do not crush, chew, or split. Active polyethylene glycol (PEG) 17 gram/dose oral powder 17 g 1 (one) time each day. Active senna-docusate (PERICOLACE) 8.6-50 mg per tabletIndication s:Chronic constipation Take 2 tablets by mouth at bedtime. 60 each 11 5 026 Active plecanatide (Trulance) 3 mg tabletIndication s:Constipation, unspecified constipation type Take 1 tablet (3 mg total) by mouth 1 (one) time each day. 30 tablet 2 5 Active senna-docusate (PERICOLACE) 8.6-50 mg per tablet Take 1 tablet by mouth 1 (one) time each day. 30 each 2 11 026 Active polyethylene glycol (Golytely) 236-22.74-6.74 -5.86 gram solution Take 4L by mouth once for one dose. May substitue any PEG. Starting at 2PM the day before your procedure drink 1 8oz glasses at your own pace until you complete half of the gallon. Finish 2nd half of the gallon at 8PM. 4000 mL 5 Active bisacodyL (DULCOLAX) 5 mg EC tablet Take 2 tablets by mouth right before beginning bowel prep. See instructions provided by the office 2 tablet 5 Active Active Problems Problem Noted Date Diagnosed Date [...] Encounters Date Type Department Care Team Description 09/06/2025 7:46 AM EST Anesthesia Event [facility] Endoscopy [address] [place] [address] Scott Alfaro DO Elliott, Barbara J, DIEGO 09/06/2025 7:26 AM EST - 09/06/2025 11:59 PM EST Hospital Encounter [facility] Endoscopy [address] [place] [address] Ran Carr MD Elliott, Barbara J, CRNA Constipation, unspecified constipation type; Rectal bleeding Discharge Disposition: Home or Self Care 08/31/2025 Telephone Gastroenterology - [address] [address] Ran Carr MD 08/30/2025 Telephone Gastroenterology - [address] [address] Ran Carr MD from Last 3 Months Immunizations Immunization Administration Dates Next Due Influenza Quadravalent, 0.5m [...] tax1, tics throughout TOTAL KNEE ARTHROPLASTY Right Medical History Medical History Date Comments Vertigo Chronic constipation BPH (benign prostatic hyperplasia) Social History Tobacco Use Types Packs/Day Years Used Date Smoking Tobacco: Former Cigarettes Smokeless Tobacco: Never Tobacco Cessation:Counseling Given: Not Answered Alcohol Use Standard Drinks/Week Comments Yes 0 (1 standard drink = 0.6 oz pur e alcohol) Rare social occasions Interpersonal Safety Answer Date Record ed Physical Abuse Unrecognized value 09/06/2025 Verbal Abuse Unrecognized value 09/06/2025 Sex and Gender Information Value Date Recorded Sex Assigned at Not on file Legal Sex Male 8:10 AM EST Gender Identity Not on file Sexual Orientation Not on file Last Filed Vital Signs Vital Sign Reading Time Taken Comments Blood Pressure 127/62 09/06/2025 8:28 AM EST Pulse 65 09/06/2025 8:28 AM EST Temperature 36.1 C (97 F) 09/06/2025 8:08 AM EST Respiratory Rate 16 09/06/2025 8:28 AM EST Oxygen Saturation 97% 09/06/2025 8:28 AM EST Inhaled Oxygen Concentration - - Weight 77.1 kg (170 lb) 09/06/2025 7:48 AM EST Height 175.3 cm (5' 9 ) 09/06/2025 7:48 AM EST Body Mass Index 25.1 09/06/2025 7:48 AM EST Plan of Treatment Health Maintenance Due Date Last Done Comments Pneumococcal Vaccine: 50+ Years (1 of 1 - PCV) 1990 Zoster Vaccines (1 of 2) 1990 RSV Immunization Adult Patients (1 - 1-dose 75+ series) 2015 Depression Screening 10/27/2024 Cholesterol Screening (Lipid Panel) 01/28/2025 Social Influencers of Health Screening 01/28/2025 COVID-19 Vaccine ( season) 2026 08/24/2025, 09/03/2022, 03/05/2022, Additional history exists Falls Risk Assessment 09/06/2026 09/06/2025 DTaP,Tdap,and Td Vaccines (2 - Td or Tdap) 11/27/2032 11/27/2022 Influenza Vaccine Completed 08/09/2025, , 08/29/2023, Additional history exists HIB Vaccines Aged Out No longer eligi [...] on patient's age to complete this topic Goals Goal Patient Goal Type Associated Problems Recent Progress Patient-Stated? Author Autogenerat ed Goal Care Plan Autogenerated Problem No Dallin Clemente Procedures Procedure Name Priority Date/Time Associated Diagnosis Comments COLONOSCOPY Routine 09/06/2025 8:07 AM EST Constipation, unspecified constipation type Rectal bleeding from Last 3 Months Results * COLONOSCOPY Anesthesia - General; [facility] ENDOSCOPY (09/06/2025 8:07 AM EST) Anatomical Region Laterality Modality Endoscopy 09/06/2025 7:44 AM EST Impressions 09/06/2025 8:09 AM EST - Diverticulosis in the sigmoid colon. - Diverticulosis in the ascending colon. - Melanosis in the colon. - Non-bleeding internal hemorrhoids. - The examination was otherwise normal on direct and retroflexion views. - No specimens collected. Recommendation: - Discharge patient to home. - High fiber diet. - Continue present medications. - Return to GI clinic PRN. Narrative 09/06/2025 8:09 AM EST [facility] GI Patient Name: Yonis Izaguirre Procedure Date: 09/06/2025 7:44 AM Date of : 1940 Age: 84 Room: ROOM 15 Gender: Male Note Status: Finalized Attending MD: Ran Carr MD, Procedure Date No Time: 09/06/2025 Procedure: Colonoscopy Indications: Rectal bleeding, Change in bowel habits Providers: Ran Carr MD Referring MD: Ran Carr MD Medicines: Monitored Anesthesia Care Complications: No immediate complications. Estimated Blood Loss: Estimated blood loss: none. Procedure: Pre-Anesthesia Assessment: - ASA Grade Assessment: II - A patient with mild systemic disease. - After reviewing the risks and benefits, the patient was deemed in satisfactory condition to undergo the procedure. After I obtained informed consent, the scope was passed under direct vision. Throughout the procedure, the patient's blood pressure, pulse, and oxygen saturations were monitored continuously.The Olympus Pediatric Colonoscope was introduced through the anus and advanced to the cecum, identified by appendiceal orifice and ileocecal valve. The colonoscopy was performed without difficulty. The patient tolerated the procedure well. The quality of the bowel preparation was good. Findings: Multiple small and large-mouthed diverticula were found in the sigmoid colon. Scattered small and large-mouthed diverticula were found in the ascending colon. A diffuse area of moderate melanosis was found in the entire colon. Non-bleeding internal hemorrhoids were found during retroflexion. The hemorrhoids were small. The exam was otherwise without abnormality on direct and retroflexion views. Procedure Code(s): --- Professional --- 33300, Colonoscopy, flexible; diagnostic, including collection of specimen(s) by brushing or washing, when performed (separate procedure) Diagnosis Code(s): --- Professional --- K62.5, Hemorrhage of anus and rectum R19.4, Change in bowel habit CPT copyright 2020 [employer]. All rights reserved. The codes documented in this report are preliminary and upon toggle press folder and feeder review may be revised to meet current compliance requirements. Ran Carr MD 09/06/2025 8:09:46 AM This report has been signed electronically.Ran Carr MD Number of Addenda: 0 Note Initiated On: 09/06/2025 7:44 AM Scope In: Scope Out: Endoscopy Department at [facility] - [address] [place] [id number] Procedure Note Ran Carr MD - 09/06/2025 [facility] GI Patient Name: Yonis Izaguirre Procedure Date: 09/06/2025 7:44 AM Date of : 1940 Age: 84 Room: ROOM 15 Gender: Male Note Status: Finalized Attending MD: Ran Carr MD, Procedure Date No Time: 09/06/2025 Procedure: Colonoscopy Indications: Rectal bleeding, Change in bowel habits Providers: Ran Carr MD Referring MD: Ran Carr MD Medicines: Monitored Anesthesia Care Complications: No immediate complications. Estimated Blood Loss: Estimated blood loss: none. Procedure: Pre-Anesthesia Assessment: - ASA Grade Assessment: II - A patient with mild systemic disease. - After reviewing the risks and benefits, thepatient was deemed in satisfactory condition to undergo the procedure. After I obtained informed consent, the scope was passed under direct vision. Throughout theprocedure, the patient's blood pressure, pulse, and oxygen saturations were monitored continuously.The Olympus Pediatric Colonoscope was introduced through theanus and advanced to the cecum, identified byappendiceal orifice and ileocecal valve. The colonoscopy was performed without difficulty. The patient tolerated the procedure well. The quality of the bowel preparation was good. Findings: Multiple small and large-mouthed diverticula were found in the sigmoid colon. Scattered small and large-mouthed diverticula were found in the ascending colon. A diffuse area of moderate melanosis was found inthe entire colon. Non-bleeding internal hemorrhoids were found during retroflexion. The hemorrhoids were small. The exam was otherwise without abnormality ondirect and retroflexion views. Procedure Code(s): --- Professional --- 04526, Colonoscopy, flexible; diagnostic, including collection of specimen(s) by brushing or washing,when performed (separate procedure) Diagnosis Code(s): --- Professional --- K62.5, Hemorrhage of anus and rectum R19.4, Change in bowel habit CPT copyright 2020 [employer]. All rights reserved. The codes documented in this report are preliminary and upon toggle press folder and feeder reviewmay be revised to meet current compliance requirements. Ran Carr MD 09/06/2025 8:09:46 AM This report has been signed electronically.Ran Carr MD Number of Addenda: 0 Note Initiated On: 09/06/2025 7:44 AM Scope In: Scope Out: Endoscopy Department at [facility] - [address] [place] [id number] IMPRESSION: - Diverticulosis in the sigmoid colon. - Diverticulosis in the ascending colon. - Melanosis in the colon. - Non-bleeding internal hemorrhoids. - The examination was otherwise normal on directand retroflexion views. - No specimens collected. Recommendation: - Discharge patient to home. - High fiber diet. - Continue present medications. - Return to GI clinic PRN. us Ran Carr MD GI~PROCEDURE ORDERABLES Final Result from Last 3 Months Additional Health Concerns Active Problems Noted Date Diagnosed Date Autogenerated Problem 08/08/2025 Insurance [facility] Care Teams Mortgage Loan Reviewer Relationship Specialty Start Date End Date Paco Barber FNP [address] [place] [address] [place] [address] PCP - General Family Medicine 01/28/25
== END 2025-10-17 14:29 | disposition home or self-care (01) ==
LOC: HO.HMCSH 13:49
PROVIDERS: PCP Internal Medicine; Visit Provider Internal Medicine
DX: R00.2 Palpitations (principal)

== ENCOUNTER → 2025-10-17 13:49 | Outpatient (BNVA) | payer MEDICARE, SELFPAY | PROVIDERS: PCP Internal Medicine; Visit Provider Internal Medicine | DX: R00.2 Palpitations (principal); Z13.31 Encounter for screening for depression | CPT/HCPCS: 96127; 99212 ==